=== PATIENT | male | born 1970 | race African-American/Black ===

== ENCOUNTER 2017-11-11 20:12 | Emergency (ER) | payer SELFPAY ==
[~2017-11-11] VITALS: Ht 185.4 cm; Wt 75.0 kg
[2017-11-11] MEDS ORDERED: MORPHINE SULFATE 4 MG/ML CPJ (NOT FOR IM USE) IV STA (20:23)
[2017-11-11] MEDS ORDERED: SODIUM CHLORIDE 0.9% 1,000 ML IV ONE ×2 (20:23→20:26)
[2017-11-11] MEDS ORDERED: FENTANYL CITRATE/PF 50MCG/ML 2ML VIAL IV ONE ×2 (20:30→21:15)
[2017-11-11] MEDS ORDERED: TETANUS, DIPHTHERIA, PERTUSSIS VAC/PF 0.5ML (>7YR OLD) IM ONE (20:45)
[2017-11-11 20:58] LABS: BASOPHILS % 0.7 % (0.0-2.0); EOSINOPHILS % 1.6 % (0.0-5.0); HEMATOCRIT. 39.4 % (42.0-52.0); HEMOGLOBIN. 13.3 g/dL (14.0-18.0); LYMPHOCYTES % 55.1 % (20.0-50.0); MEAN CORPUSCULAR HEMOGLOBIN 29.4 pg (28.0-32.0); MEAN CORPUSCULAR VOLUME 87.6 fL (80.0-94.0); MEAN PLATELET VOLUME 7.5 fl (7.4-10.4); MONOCYTES % 4.9 % (2.0-8.0); NEUTROPHILS % 37.7 % (40.0-76.0); PLATELET 290 x1000/uL (130-400); RED CELL DISTRIBUTION WIDTH 14.3 % (11.6-14.6)
[2017-11-11 21:04] LABS: CHLORIDE 111 mEq/L (98-107)
[2017-11-11 21:05] LABS: INR 1.2; PROTHROMBIN TIME 12.7 sec (9.4-11.6)
[2017-11-11 21:08] LABS: ETHANOL BLOOD 44 mg/dL
[2017-11-11 21:16] VITALS: BP 122/72
== END 2017-11-11 21:37 | disposition left against medical advice (07) ==
LOC: ER 20:12
DX: T22.20XA Burn of second degree of shoulder and upper limb, except wrist and hand, unspecified site, initial encounter (principal); T23.201A Burn of second degree of right hand, unspecified site, initial encounter; T21.22XA Burn of second degree of abdominal wall, initial encounter; T21.21XA Burn of second degree of chest wall, initial encounter; T31.11 Burns involving 10-19% of body surface with 10-19% third degree burns; X03.0XXA Exposure to flames in controlled fire, not in building or structure, initial encounter; X04.XXXA Exposure to ignition of highly flammable material, initial encounter; W40.1XXA Explosion of explosive gases, initial encounter; Y93.89 Activity, other specified; Y92.89 Other specified places as the place of occurrence of the external cause; E87.2 Acidosis; F17.210 Nicotine dependence, cigarettes, uncomplicated; F12.90 Cannabis use, unspecified, uncomplicated
CPT/HCPCS: 36415; 80053; 85025; 85610; 96361; 96374; 96375; 96376; 99285; G0482; J2270; J3010; J7030; 90715